=== PATIENT | female | born 1940 | race Caucasian/White ===

== ENCOUNTER → 2016-09-19 | Outpatient (CLI) | payer OTHER, BC ==
[~2016-09-19] MED LIST: B-CO1CAP17 PO; CYAN500T13 PO; IBUP-1459 PO; MULTTAB58 PO; TYLOTC500 PO; VITA400C3 PO; [UNRECOGNIZED DRUG - OTHER] PO; [UNRECOGNIZED DRUG - OTHER] PO; [UNRECOGNIZED DRUG - OTHER] PO; [UNRECOGNIZED DRUG - OTHER] PO
[2016-09-19 18:12] LABS: BASO % 0.2 %; BASO ABS # 0.01 K/uL (0-0.2); COMPLETE YES; EOS % 1.3 %; HEMATOCRIT 38.4 % (37-47); IG% 0.2 %; LYMPH % 37.5 %; LYMPH ABS # 1.95 K/uL (1.2-3.4); MEAN CELL VOLUME 95.8 fL (80-100); MEAN CORPUSCULAR HEMOGLOBIN 30.4 pg (25-34); MEAN CORPUSCULAR HGB CONC 31.8 g/dl (32-36); MEAN PLATELET VOLUME 8.8 fL (7.4-10.4); MONO % 10.4 %; NEUT % 50.4 %; PLATELET COUNT 314 K/uL (130-400); RED BLOOD COUNT 4.01 M/uL (4.2-5.4)
[2016-09-19 18:19] LABS: BLOOD UREA NITROGEN 18 mg/dl (7-18); BUN/CREATININE RATIO 26.8 (10-20); CALCIUM 9.3 mg/dl (8.5-10.1); CARBON DIOXIDE 26 mmol/L (21-32); CHLORIDE 108 mmol/L (98-107); CREATININE 0.66 mg/dl (0.60-1.20); GLUCOSE 84 mg/dl (70-99); POTASSIUM 4.2 mmol/L (3.5-5.1); SODIUM 140 mmol/L (136-145)
[2016-09-19 18:30] LABS: ALB/GLOB RATIO 1.4 (0.9-2); ALKALINE PHOSPHATASE 40 U/L (45-117); ALT/SGPT 22 U/L (12-78); AST/SGOT 19 U/L (15-37); CHOLESTEROL 221 mg/dl (0-200); CHOLESTEROL/HDL RATIO 2.9; HDL CHOLESTEROL 76 mg/dl; THYROID STIMULATING HORMONE 0.714 uIu/ml (0.300-4.500); TRIGLYCERIDES 86 mg/dl (0-150); VERY LOW DENSITY LIPOPROT CALC 17 mg/dl
== END | disposition home or self-care (01) ==
LOC: C.LABSPEC 17:32
PROVIDERS: ATTEND Internal Medicine
DX: R53.83 Other fatigue (principal); E78.5 Hyperlipidemia, unspecified

== ENCOUNTER → 2016-09-23 | Outpatient (CLI) | payer OTHER, BC ==
--- NOTE | 2016-09-23 15:37 | DIAGNOSTIC IMAGING REPORT ---
CHEST 2 VIEWS ROUTINE CLINICAL HISTORY: DYSPNEA COMPARISON STUDY: 10/02/2013 FINDINGS: The cardiac and mediastinal contours are normal. There is no evidence of focal pulmonary consolidation. There is no evidence of failure. No pleural effusions are visualized.[ IMPRESSION: No active disease in the chest. Electronically signed by: Ang Doe M.D. 09/23/2016 3:35 PM Dictated Date/Time: 09/23/2016 3:35 PM
== END | disposition home or self-care (01) ==
LOC: C.RAD 14:31
PROVIDERS: ATTEND Internal Medicine
DX: R06.00 Dyspnea, unspecified (principal)

== ENCOUNTER → 2016-09-27 | Outpatient (CLI) | payer OTHER, BC ==
[~2016-09-27] MED LIST changes: +ATROPINE SULFATE 0.1 MG/ML 5ML SYR ONE; +DOBUTamine HCL 12.5 MG/ML 20 ML VIAL ONE; +METOPROLOL TARTRATE 1 MG/ML VIAL ONE
--- NOTE | 2016-09-27 14:06 | DOBUTAMINE ECHO ---
*NOTICE TO RECEIVING [employer] This information is strictly Confidential and protected under [place] law. [place] law prohibits you from making any further disclosure of this information unless further disclosure is expressly permitted by the written consent of the person to whom it pertains or is authorized by law. A general authorization for the release of medical or other information is not sufficient for this purpose. Hospital accepts no responsibility if the information is made available to any other person, INCLUDING THE PATIENT. Interpretation Summary * Name: THU JOLLEY Study Date: 09/27/2016 11:18 AM BP: 123/68 mmHg * Patient Location: [facility] HR: 72 * : 1940 (M/d/yyyy) Gender: Female Height: 60 in * Age: 75 yrs Ethnicity: [place] Weight: 143 lb * Ordering Physician: Andrew Euceda * Referring Physician: Andrew Euceda * Performed By: Elsa Lyons RCS * * Reason For Study: CHEST PAIN WITH EXERTION / DYSPNEA * BSA: 1.6 m2 * -- Conclusions -- * Left ventricular systolic function is normal. * Grade I diastolic dysfunction, (abnormal relaxation pattern). * The right ventricle is borderline dilated. * Normal dobutamine echocardiogram without evidence of inducible ischemia. Procedure Details * DOBUTAMINE ECHO, CPT#[id number] * ECHO COLOR FLOW, CPT #[id number] * ECHO DOPPLER, CPT #[id number] Left Ventricle * The left ventricle is normal in size. * There is normal left ventricular wall thickness. * Left ventricular systolic function is normal. * Grade I diastolic dysfunction, (abnormal relaxation pattern). * The left ventricular wall motion is normal. Right Ventricle * The right ventricle is borderline dilated. * The right ventricular systolic function is normal. Atria * The left atrial size is normal. * Right atrial size is normal. Mitral Valve * The mitral valve leaflets appear thickened, but open well. * Significant mitral regurgitation is absent. Tricuspid Valve * The tricuspid valve is not well visualized, but is grossly normal. * Significant tricuspid regurgitation is absent. Aortic Valve * The aortic valve is normal in structure and function. * No hemodynamically significant valvular aortic stenosis. * There is no significant aortic regurgitation. Great Vessels * The aortic root is normal size. Pericardium * There is no pericardial effusion. Stress Parameters * Normal baseline electrocardiogram. * Stress ECG: No ST changes. No arrhythmias. * No arrhythmia were noted with stress. * The stress portion of this study was personally supervised by the undersigned interpreting physician. * Rest heart rate was '72' BPM. * Rest blood pressure was '123/68' * Maximum heart rate achieved was 136 bpm. * Maximum heart rate was 93 % of maximum age-predicted heart rate. * Maximum blood pressure was '143/61' * Maximum Dobutamine infusion rate was '30' mcg/kg/min. * A total of 0 mg of intravenous Atropine was used to supplement Dobutamine for heart rate response. * Dobutamine infusion was terminated due to achieving target heart rate * A total of 0 mg of IV Metoprolol was administered to reverse Dobutamine-induced tachycardia. Left Ventricular Findings with Stress * Normal dobutamine echocardiogram without evidence of inducible ischemia. * Normal baseline echocardiogram with normal augmentation during dobutamine infusion. No inducible wall motion abnormalities. Normal baseline EKG without changes during dobutamine infusion. Patient had a headache, but no dyspnea or chest pain during the test. MMode 2D Measurements and Calculations IVSd 0.85 cm IVSs 1.1 cm LVIDd 4.0 cm LVIDs 3.0 cm LVPWd 0.91 cm LVPWs 1.2 cm IVS/LVPW 0.93 FS 24.0 % EDV(Teich) 68.5 ml ESV(Teich) 35.3 ml EF(Teich) 48.5 % EDV(cubed) 62.3 ml ESV(cubed) 27.3 ml EF(cubed) 56.2 % % IVS thick 33.8 % % LVPW thick 27.0 % LV mass(C)d 104.3 grams LV mass(C)dI 64.5 grams/m\S\2 LV mass(C)s 101.4 grams LV mass(C)sI 62.7 grams/m\S\2 SV(Teich) 33.2 ml SI(Teich) 20.5 ml/m\S\2 SV(cubed) 35.0 ml SI(cubed) 21.6 ml/m\S\2 Ao root diam 2.3 cm Ao root area 4.3 cm\S\2 LA dimension 2.9 cm LA/Ao 1.2 LVOT diam 1.8 cm LVOT area 2.5 cm\S\2 LVAd ap4 24.9 cm\S\2 LVLd ap4 6.4 cm EDV(MOD-sp4) 79.4 ml EDV(sp4-el) 82.7 ml LVAs ap4 14.8 cm\S\2 LVLs ap4 5.0 cm ESV(MOD-sp4) 36.0 ml ESV(sp4-el) 36.9 ml EF(MOD-sp4) 54.7 % EF(sp4-el) 55.4 % LVAd ap2 18.2 cm\S\2 LVLd ap2 5.7 cm EDV(MOD-sp2) 48.8 ml EDV(sp2-el) 49.1 ml LVAs ap2 10.5 cm\S\2 LVLs ap2 4.4 cm ESV(MOD-sp2) 20.7 ml ESV(sp2-el) 21.2 ml EF(MOD-sp2) 57.5 % EF(sp2-el) 56.9 % LVLd %diff -11.04 % EDV(MOD-bp) 65.6 ml LVLs %diff -13.39 % ESV(MOD-bp) 28.9 ml EF(MOD-bp) 55.9 % SV(MOD-sp4) 43.5 ml SI(MOD-sp4) 26.9 ml/m\S\2 SV(MOD-sp2) 28.1 ml SI(MOD-sp2) 17.4 ml/m\S\2 SV(MOD-bp) 36.7 ml SI(MOD-bp) 22.7 ml/m\S\2 SV(sp4-el) 45.8 ml SI(sp4-el) 28.3 ml/m\S\2 SV(sp2-el) 27.9 ml SI(sp2-el) 17.3 ml/m\S\2 Doppler Measurements and Calculations MV E max jarred 102.5 cm/sec MV A max jarred 108.4 cm/sec MV E/A 0.95 MV P1/2t max jarred 102.4 cm/sec MV P1/2t 61.1 msec MVA(P1/2t) 3.6 cm\S\2 MV dec slope 491.1 cm/sec\S\2 MV dec time 0.20 sec Ao V2 max 122.8 cm/sec Ao max PG 6.0 mmHg Ao max PG (full) 0.71 mmHg ANNALISA(V,A) 2.4 cm\S\2 ANNALISA(V,D) 2.4 cm\S\2 LV V1 max PG 5.3 mmHg LV V1 max 115.4 cm/sec MR max jarred 471.9 cm/sec MR max PG 89.1 mmHg PA V2 max 75.3 cm/sec PA max PG 2.3 mmHg TR max jarred 215.7 cm/sec
== END | disposition home or self-care (01) ==
LOC: C.CPL 10:04
PROVIDERS: ATTEND Internal Medicine
DX: R07.9 Chest pain, unspecified (principal); R06.09 Other forms of dyspnea

== ENCOUNTER → 2016-10-22 | Outpatient (CLI) | payer OTHER, BC ==
[~2016-10-22] MED LIST changes: -ATROPINE SULFATE 0.1 MG/ML 5ML SYR ONE; -DOBUTamine HCL 12.5 MG/ML 20 ML VIAL ONE; -METOPROLOL TARTRATE 1 MG/ML VIAL ONE
--- NOTE | 2016-10-23 07:57 | MAMMOGRAPHY REPORT ---
BILATERAL DIGITAL SCREENING MAMMOGRAM WITH CAD: 10/22/2016 CLINICAL HISTORY: Routine screening. TECHNIQUE: Bilateral CC, MLO and repeat CC views with nipples in profile were obtained. Current stud y was also evaluated with a Computer Aided Detection (CAD) system. COMPARISON: Comparison is made to exams dated: 08/31/2015 mammogram, 08/29/2014 mammogram, 08/27/2013 m ammogram, 08/26/2012 mammogram, 08/26/2011 mammogram, and 08/22/2010 mammogram - [facility] enter. BREAST COMPOSITION: There are scattered areas of fibroglandular density in both breasts. FINDINGS: There are scattered bilateral benign-appearing calcifications and rodlike secretory calcifi cations. No new suspicious mass, architectural distortion or cluster of microcalcifications is seen. IMPRESSION: ACR BI-RADS CATEGORY 1: NEGATIVE There is no mammographic evidence of malignancy. A 1 year screening mammogram is recommended. The pa tient will receive written notification of the results. Approximately 10% of breast cancers are not detected with mammography. A negative mammographic report should not delay biopsy if a clinically suggestive mass is present. Brigette Landon M.D. ay/:10/22/2016 14:46:21 Summer Babysitter: Jeniffer URIOSTEGUI(R)(M), [facility] letter sent: Normal 1/2 BI-RADS Code: ACR BI-RADS Category 1: Negative
== END | disposition home or self-care (01) ==
LOC: C.MAMM 12:41
PROVIDERS: ATTEND Internal Medicine
DX: Z12.31 Encounter for screening mammogram for malignant neoplasm of breast (principal)

== ENCOUNTER 2025-02-11 14:26 | Inpatient (IN) ==
[2025-02-11] MEDS: FAMOTIDINE 20MG IV PUSH 20 MG/5 ML SYR IV STA (15:01)
[2025-02-11] MEDS: PLASMA-LYTE A 1,000 ML IV ONE (15:01)
[2025-02-11 15:15] LABS: Hematocrit (blood only) 38.6 % (37.0-47.0); Hemoglobin 12.6 g/dL (12.0-16.0); Immature Granulocytes # (auto) 0.02 K/uL (0.01-0.20); Immature Granulocytes % (auto) 0.3 %; Mean Corpuscular Hemoglobin 31.3 pg (25.0-34.0); Mean Corpuscular Volume 95.8 fL (80.0-100.0); Platelet Count 278 K/uL (130-400); RDW Standard Deviation 44.1 fL (36.4-46.3); Red Blood Count 4.03 M/uL (4.20-5.40); White Blood Count 6.54 K/ul (4.8-10.8)
[2025-02-11 15:32] LABS: Alanine Aminotransferase 17 U/L (7-52); Albumin Globulin Ratio 1.5 (0.9-2); Albumin Level 4.3 gm/dl (3.4-5.0); Alkaline Phosphatase 59 U/L (34-104); Anion Gap 9 (3-11); Bilirubin,Total 0.9 mg/dl (0.2-1.0); Blood Urea Nitrogen 19 mg/dl (6-23); Calcium 9.5 mg/dl (8.6-10.3); Carbon Dioxide 25 mmol/L (21-32); Chloride 106 mmol/L (98-107); Globulin 2.8 gm/dl (2.5-4.0); Glucose 92 mg/dl (70-99(Fasting)); Lipase 18 U/L (11-82); Potassium 4.1 mmol/L (3.5-5.1); Sodium 140 mmol/L (136-145); Total Protein 7.1 gm/dl (6.0-8.3)
--- NOTE | 2025-02-11 15:34 | Electrocardiogram Report ---
Test Reason : Blood Pressure : */* mmHG Vent. Rate : 84 BPM Atrial Rate : 84 BPM P-R Int : 122 ms QRS Dur : 74 ms QT Int : 400 ms P-R-T Axes : 36 22 49 degrees QTcB Int : 472 ms Sinus rhythm with marked sinus arrhythmia Low voltage QRS Borderline ECG When compared with ECG of 12-Nov-2022 15:43, No significant change was found Confirmed by Cayetano Paz ([id number]) on 02/11/2025 3:33:53 PM Referred By: Confirmed By: Cayetano Paz
--- NOTE | 2025-02-11 16:06 | Emergency Department Note ---
Impression & Plan Epigastric abdominal pain, Chronic anemia, Positional lightheadedness, Elevated lactic acid level ED Provider Note NAME: THU JOLLEY AGE: 84 SEX: F : 1940 ARRIVES VIA: Ambulance INFORMANT: Patient, EMS ED PROVIDER(S): Fab Worthy DO CHIEF COMPLAINT: HPI: This is an 84-year-old female with the PMHx of DLD and MR presenting to [facility] for further evaluation of lightheadedness/dizziness and abdominal pain. Patient states she lives in a high-rise apartment by herself. She states she has ongoing upper abdominal pain. She states she also has lightheadedness and dizziness. She states this is positional. When she changes in position she becomes lightheaded. She states this affects her ambulatory status. She states she concern for her safety as she nearly falls. They deny fever or chills. No cough or congestion. Denies chest pain or palpitations. No shortness of breath. T No urinary complaints. No recent changes in bowel movements. Patient denies recent changes in medications or OTC supplements. Patient offers no other complaints, today. ADDITIONAL HISTORY OBTAINED: Per HPI Chronic Medical/Social Conditions Affecting Care: Per HPI PAST MEDICAL HISTORY: See Below PAST SURGICAL HISTORY: See Below FAMILY HISTORY: See Below SOCIAL HISTORY: See Below HOME MEDICATIONS: See Below ALLERGIES: See Below VITALS: See Below PHYSICAL EXAMINATION: GENERAL: Sitting up in bed, alert, well appearing, well nourished, no distress, non-toxic EYE EXAM: normal conjunctiva. PERRL and EOM's grossly intact. OROPHARYNX: no exudate, no erythema, lips, buccal mucosa, and tongue normal and mucous membranes are moist NECK: supple, no nuchal rigidity, no adenopathy, non-tender LUNGS: Clear to auscultation. Normal chest wall mechanics HEART: no murmurs, regular rate, regular rhythm ABDOMEN: abdomen soft, epigastric tenderness to palpation, no masses, no rebound or guarding. BACK: Back is symmetrical on inspection and there is no deformity, no midline tenderness, no CVA tenderness. SKIN: no rashes and no bruising UPPER EXTREMITIES: upper extremities are grossly normal. LOWER EXTREMITIES: No pitting edema. NEURO EXAM: Normal sensorium, GCS 15, normal speech, no gross weakness of arms, no gross weakness of legs. No drift. Finger to nose intact. Gross sensation intact. MEDICAL DECISION MAKING: Differential diagnoses includes but not limited to orthostatic hypotension, vasovagal episode, peripheral vertigo, central etiologies, appendicitis, bowel obstruction, diverticulitis, malignancy, nephrolithiasis, gastroenteritis, ACS, PNA, pancreatitis, hepatobiliary disease, UTI, gastritis, esophageal reflux In summary, this is a 84 year old female who presented with lightheadedness/dizziness as well as abdominal pain. Differential as above. Nursing notes and pertinent past medical records reviewed. Vital signs reviewed and the patient is afebrile and HDS. History and presentation revealed multiple complaints today. Patient is not actually here for her abdominal pain necessarily but more that she just has not been feeling well. Her symptoms are consistent with a peripheral etiology of lightheadedness/dizziness. Suspect orthostatic hypotension as with positional changes she has severe lightheadedness. Patient does not have any stroke deficits. Not suspicious for stroke at this time. Physical examination revealed as above. As a result of my initial evaluation, we will plan to workup the patient's abdominal pain while providing supportive measures. There will be a safety concern for the patient given her ongoing symptoms and she lives alone. IV access was established and the patient was placed on CCRM. Therapeutics ordered include IV fluid resuscitation and GI cocktail. Given her severe tenderness on exam and epigastric regions, will obtain further workup with CT abdomen/pelvis. Please note that the patient does take significant robert of ibuprofen. Potential for upper GI bleeding is a possibility but felt to be less likely. Diagnostics interpreted by me include EKG and cardiac monitoring as listed below: -Cardiac Monitoring: An order was placed for continuous cardiac monitoring. The monitor shows a rate of 80-100s with regular rhythm. -ECG: Normal sinus rhythm at a ventricular rate of 84 bpm. Sinus arrhythmia present. No significant ST segment changes to suggest STEMI. Intervals are within normal limits otherwise. Patient completed laboratory studies and imaging. Results independently interpreted by me are no leukocytosis or anemia. There is no significant electrolyte derangements or significant kidney dysfunction from baseline. No changes in LFTs. Lactate is minimally elevated. The patient was managed with IV fluid resuscitation and famotidine. CTH independently interpreted by me reveals no evidence of ICH. No significant hydrocephalus. No major skull fractures. CTH does not demonstrate findings to suggest an etiology of the patient's symptoms or presentation, today. CT abdomen/pelvis is largely unremarkable for explanation of the patient's epigastric pain. Patient symptoms are mostly positional. Do feel the patient likely has peripheral vertigo. She lives by herself in a high-rise apartment. Given patient's ambulatory status, I do not feel she is safe for her to go home at this time. I would recommend that she is admitted. If her symptoms are failed to improve or she develops FND, she will need to have further imaging obtained. I would recommend MRI as there is no suspicion for large vessel occlusion. I do feel the patient has a central etiology which is very less likely, it would likely be a posterior circulation stroke and MRI would be the preferred imaging study. Recommend increased hydration as well as meclizine as needed. Do feel her symptoms should improve from this. Ultimately, the decision was made to admit the patient for peripheral vertigo and positional lightheadedness. I discussed the case with the hospitalist service via telephone/Tiger[employer] and they are agreeable to admit the patient to their services. Based on the above, including the patient's age, coexisting illnesses, labs, imaging, and exam findings the decision to treat as an inpatient. I discussed the patient with the hospitalist team who recommended admission to their services. They received the medications, treatments, interventions indicated above and their condition []. I discussed my findings with the patient and their family and they understand and agree with the treatment plan. All patient / family questions were answered to their satisfaction. Consults/Care Managements Discussions: Per [facility] treatment provided: See above Procedures:none Critical Care: None The chart was completed utilizing [employer] Speech voice recognition software. Grammatical errors, random word insertions, pronoun errors, and incomplete sentences are an occasional consequence of this system due to software limitations, ambient noise, and hardware issues. Any formal questions or concerns about the content, text, or information contained within the body of this dictation should be directly addressed to the physician for clarification. Past Med/Surg History Problem List (Updated 02/13/25 @ 14:13 by Fab Worthy DO) Elevated lactic acid level (Acute) Positional lightheadedness (Acute) Chronic anemia (Acute) Epigastric abdominal pain (Acute) Dizziness Mitral regurgitation mild Dyslipidemia No pertinent past surgical history Cholelithiasis (Acute) Medical History (Updated 02/13/25 @ 14:13 by Fab J. Worthy, DO) No pertinent family history Surgical History (Updated 12/24/22 @ 13:21 by Mary Mcdonnell) History of cataract surgery Hx of cholecystectomy Family History (Updated 12/24/22 @ 10:56 by Mary Mcdonnell) Aunt Breast cancer maternal Sister Breast cancer Family/Other Breast cancer maternal cousins Brother Myocardial infarction Father Lung cancer mets to the lung Other No pertinent family history Denies family history of Ovarian cancer Prostate cancer Colorectal cancer Social History (Updated 12/24/22 @ 13:25 by Mary Mcdonnell) Smoking Status: Never smoker Second Hand Exposure: No; Do You Dip or Chew Tobacco: No; Hx Alcohol Use: No Hx Substance Use: No Preferred Language: Singaporean Communication Ability: Effective Visual Impairment: No Limitations Hearing Ability: Hard of Hearing Web Support Engineer Required: No Beliefs That Will Affect Care: Nondenominational marital status: / Current Living Situation: Alone Current Living Situation Comment: Living in an [place] on the 4th floor current occupational status: retired Other Information That Helps Us Care for You: No Feels Safe at Home: Yes Safety Concerns: Feels Safe At This Time Dental Care, Regularly: No Assistive Devices: Denture - Upper, Denture - Lower and Glasses Allergies Allergies Allergy/AdvReac Type Severity Reaction Status Date / Time Penicillins Allergy Unknown RASH Verified 12/24/22 10:54 Sulfa (Sulfonamide Allergy Unknown SEVERE RED Verified 12/24/22 10:54 Antibiotics) SKIN;ELEVATED TEMP Home Meds Home Medications Medication Instructions Recorded Confirmed acetaminophen 500 mg tablet 500 mg PO QID PRN Pain 08/04/18 02/11/25 (Tylenol Extra Strength) ibuprofen 200 mg tablet 200 mg PO DIRECTED PRN Pain 08/04/18 02/11/25 Results & Data (ED) Vital Signs Vital Signs - 24 hr 02/11/25 14:15 02/11/25 14:39 02/11/25 14:40 Pulse Rate 93 H 81 93 H Pulse Rate from SpO2 Sensor Respiratory Rate 16 28 H 16 Respiratory Depth Normal Blood Pressure 150/82 H Blood Pressure Mean 104 Pulse Oximetry 96 96 Oxygen Delivery Method Room Air Sepsis Recent Fever Within 48 Hours No Sepsis New/Unexplained Change in Mental Status N/A Sepsis Action Taken by Nursing No Action Required 02/11/25 14:42 02/11/25 14:51 02/11/25 15:00 Pulse Rate 86 84 92 H Pulse Rate from SpO2 Sensor Respiratory Rate 23 23 19 Respiratory Depth Blood Pressure Blood Pressure Mean Pulse Oximetry Oxygen Delivery Method Sepsis Recent Fever Within 48 Hours Sepsis New/Unexplained Change in Mental Status Sepsis Action Taken by Nursing 02/11/25 15:12 02/11/25 15:21 02/11/25 15:30 Pulse Rate 91 H 103 H 95 H Pulse Rate from SpO2 Sensor 90 99 H 97 H Respiratory Rate 22 23 25 H Respiratory Depth Blood Pressure Blood Pressure Mean Pulse Oximetry 97 100 98 Oxygen Delivery Method Sepsis Recent Fever Within 48 Hours Sepsis New/Unexplained Change in Mental Status Sepsis Action Taken by Nursing 02/11/25 15:42 02/11/25 15:51 02/11/25 16:18 Pulse Rate 91 H 86 102 H Pulse Rate from SpO2 Sensor 89 85 91 H Respiratory Rate 15 17 20 Respiratory Depth Blood Pressure 154/74 H Blood Pressure Mean 100 Pulse Oximetry 98 99 99 Oxygen Delivery Method Sepsis Recent Fever Within 48 Hours Sepsis New/Unexplained Change in Mental Status Sepsis Action Taken by Nursing 02/11/25 16:21 02/11/25 16:30 02/11/25 16:42 Pulse Rate 88 82 83 Pulse Rate from SpO2 Sensor 89 86 87 Respiratory Rate 18 15 21 Respiratory Depth Blood Pressure Blood Pressure Mean Pulse Oximetry 100 99 99 Oxygen Delivery Method Sepsis Recent Fever Within 48 Hours Sepsis New/Unexplained Change in Mental Status Sepsis Action Taken by Nursing 02/11/25 16:46 02/11/25 16:51 02/11/25 17:00 Pulse Rate 90 83 89 Pulse Rate from SpO2 Sensor 82 89 Respiratory Rate 22 24 Respiratory Depth Blood Pressure Blood Pressure Mean Pulse Oximetry 99 99 Oxygen Delivery Method Sepsis Recent Fever Within 48 Hours Sepsis New/Unexplained Change in Mental Status Sepsis Action Taken by Nursing 02/11/25 17:12 02/11/25 17:21 02/11/25 17:30 Pulse Rate 87 78 89 Pulse Rate from SpO2 Sensor 84 80 85 Respiratory Rate 15 19 15 Respiratory Depth Blood Pressure Blood Pressure Mean Pulse Oximetry 98 99 97 Oxygen Delivery Method Sepsis Recent Fever Within 48 Hours Sepsis New/Unexplained Change in Mental Status Sepsis Action Taken by Nursing 02/11/25 17:42 Pulse Rate 89 Pulse Rate from SpO2 Sensor 86 Respiratory Rate 13 Respiratory Depth Blood Pressure 127/90 Blood Pressure Mean 102 Pulse Oximetry 99 Oxygen Delivery Method Sepsis Recent Fever Within 48 Hours Sepsis New/Unexplained Change in Mental Status Sepsis Action Taken by Nursing Laboratory Data 02/13/25 06:22 02/13/25 06:22 Lab Results 02/11/25 02/11/25 Range/Units 15:04 15:46 WBC 6.54 (4.8-10.8) K/ul RBC 4.03 L (4.20-5.40) M/uL Hgb 12.6 (12.0-16.0) g/dL Hct 38.6 (37.0-47.0) % MCV 95.8 (80.0-100.0) fL MCH 31.3 (25.0-34.0) pg MCHC 32.6 (32.0-36.0) g/dL RDW Std Deviation 44.1 (36.4-46.3) fL RDW Coeff of Priyanka 12.6 (11.5-14.5) % Plt Count 278 (130-400) K/uL MPV 8.3 L (9.4-12.4) fL Immature Gran % (Auto) 0.3 % Neut % (Auto) 71.9 % Lymph % (Auto) 20.2 % Rock % (Auto) 7.0 % Eos % (Auto) 0.3 % Baso % (Auto) 0.3 % Neut # (Auto) 4.70 (1.40-6.50) K/uL Lymph # (Auto) 1.32 (1.20-3.40) K/uL Rock # (Auto) 0.46 (0.11-0.59) K/uL Eos # (Auto) 0.02 (0.00-0.50) K/uL Baso # (Auto) 0.02 (0.00-0.20) K/uL Immature Gran # (Auto) 0.02 (0.01-0.20) K/uL Sodium 140 (136-145) mmol/L Potassium 4.1 (3.5-5.1) mmol/L Chloride 106 (98-107) mmol/L Carbon Dioxide 25 (21-32) mmol/L Anion Gap 9 (3-11) BUN 19 (6-23) mg/dl Creatinine 0.54 L (0.6-1.2) mg/dl Est Cr Clr Drug Dosing Not Reportable eGFR 90.73 BUN/Creatinine Ratio 35.2 H (10-20) Glucose 92 (70-99(Fasting)) mg/dl Lactate 2.1 H* (0.4-2.0) mmol/L Calcium 9.5 (8.6-10.3) mg/dl Total Bilirubin 0.9 (0.2-1.0) mg/dl AST 27 (13-39) U/L ALT 17 (7-52) U/L Alkaline Phosphatase 59 (34-104) U/L Troponin I High Sens 7.7 (0-14) pg/ml Total Protein 7.1 (6.0-8.3) gm/dl Albumin 4.3 (3.4-5.0) gm/dl Globulin 2.8 (2.5-4.0) gm/dl Albumin/Globulin Ratio 1.5 (0.9-2) Lipase 18 (11-82) U/L Administered Medications Acetaminophen (Acetaminophen 500 Mg Tab) 1,000 mg PO Q8H PRN PRN Reason: pain/arthritis Stop: 03/15/25 08:20 Last Admin: 02/13/25 08:30 Dose: 1,000 mg Documented By: JACQUE Enoxaparin Sodium (Enoxaparin Inj 40 Mg/0.4 Ml Syr) 40 mg SQ Q24H JENAE Stop: 03/14/25 08:59 Last Admin: 02/13/25 08:30 Dose: 40 mg Documented By: Admin: 02/12/25 08:14 Dose: 40 mg Documented By: aviva Discontinued Medications Acetaminophen (Acetaminophen 325 Mg Tab) 650 mg PO Q4H PRN PRN Reason: pain/fever Stop: 03/13/25 21:54 Last Admin: 02/12/25 19:44 Dose: 650 mg Documented By: devon Admin: 02/12/25 16:27 Dose: 650 mg Documented By: aviva Admin: 02/12/25 08:13 Dose: 650 mg Documented By: aviva Admin: 02/11/25 23:06 Dose: 650 mg Documented By: devon Famotidine (Pepcid 20mg Iv Push) 20 mg in 5 mls @ 2.5 mls/min IV NOW STA Stop: 02/11/25 14:37 Last Admin: 02/11/25 15:01 Dose: 2.5 mls/min Documented By: AGUSTO Parenteral Electrolytes (Plasma-Lyte A Ph 7.4) 1,000 mls @ 999 mls/hr IV .Q1H1M ONE Stop: 02/11/25 15:36 Last Infusion: 02/11/25 16:19 Dose: Infused Documented By: Admin: 02/11/25 15:01 Dose: 999 mls/hr Documented By: AGUSTO Parenteral Electrolytes (Plasma-Lyte A Ph 7.4) 1,000 mls @ 125 mls/hr IV .Q8H JENAE Stop: 02/12/25 01:29 Last Infusion: 02/12/25 01:46 Dose: Infused Documented By: psc Admin: 02/11/25 17:38 Dose: 125 mls/hr Documented By: AGUSTO Ioversol (Optiray 320 100ml) 90 ml IV ONCE ONE Stop: 02/11/25 16:07 Last Admin: 02/11/25 16:07 Dose: 90 ml Documented By: RYDER Meclizine HCl (Meclizine Hcl 25 Mg Tab) 25 mg PO NOW STA Stop: 02/11/25 17:27 Last Admin: 02/11/25 17:36 Dose: 25 mg Documented By: AGUSTO Miscellaneous (Patient's Height &/Or Weight Needed) 1 each N/A Q2H STA Stop: 02/11/25 22:01 Last Admin: 02/11/25 23:07 Dose: 1 each Documented By: devon Potassium Chloride (Potassium Chloride Crtab 20 Meq Tabcr) 40 meq PO NOW STA Stop: 02/12/25 11:23 Last Admin: 02/12/25 11:47 Dose: 40 meq Documented By: aviva Imaging Data Radiologist's Impression: Abdomen/Pelvis CT 02/11/25 14:36 Clinical History: Epigastric pain Technique: Axial computed tomography images were obtained of the abdomen and pelvis after the administration of intravenous contrast. No prior CT is available for comparison. Findings: The liver is overall of normal size, attenuation, and contour with no sign of cirrhosis or significant fatty infiltration. No liver mass lesion is seen. The portal vein is patent. The gallbladder has been removed. No bile duct dilatation is noted. The spleen is of normal size. No focal splenic lesion is evident. The pancreas appears normal with no sign of acute or chronic pancreatitis and no mass lesion noted. The pancreatic duct is of normal caliber. The adrenal glands appear unremarkable. No definite renal or proximal ureteral calculi are seen on this contrast-enhanced study. There is mild prominence of the right renal collecting system. There is no overt hydronephrosis or perinephric stranding. No renal mass lesion is identified. The aorta is of normal caliber. No abdominal adenopathy is seen. The stomach appears normal. There is no sign of small bowel obstruction. There is diverticulosis without definite diverticulitis. There is no sign of appendicitis. No free intraperitoneal fluid or air is identified. No definite distal ureteral or bladder calculi are seen. Calcifications within the pelvis likely represent phleboliths. No bladder mass lesion is evident. The iliac arteries are of normal caliber. No pelvic adenopathy is noted. The lungs bases appear clear. There is spinal stenosis at L4-5. No fracture is identified. No focal osseous lesion is seen Impression: 1. Mild dilatation of the right renal collecting system, without overt hydronephrosis or definite obstructing lesion. This dilatation could be residual from prior obstruction or reflux 2. Diverticulosis without definite diverticulitis 3. Spinal stenosis at L4-5 Electronically signed by Robby Atkinson 02-11-2025 4:[address] 02/11/25 14:36 Clinical History: Lightheadedness Technique: Axial computed tomography images were obtained of the brain without intravenous contrast. Findings: There is diffuse cerebral atrophy, within expected limits for the patient's age. Areas of decreased attenuation are seen within the periventricular white matter, likely representing chronic small vessel ischemic disease. There is no definite sign of acute or old infarction. No intracranial hemorrhage is evident. No definite mass lesion is seen on this noncontrast examination. There is no midline shift or other form of herniation. No hydrocephalus is seen. There is apparent fat deposition in the anterior horns of the lateral ventricles laterally. No fracture is identified. The orbits and the visualized paranasal sinuses appear unremarkable. There is partial opacification of the right mastoid air cells Impression: 1. Cerebral atrophy and chronic small vessel ischemic disease 2. Partial opacification of the right mastoid air cells, which may be due to inflammatory mastoiditis Electronically signed by Robby Atkinson 02-11-2025 4:26 PM Discharge Plan Visit Data Chief Complaint: Illness Stated Complaint: doesn't feel well ED Provider: Fab Worthy Discharge Problem: Epigastric abdominal pain, Chronic anemia, Positional lightheadedness, Elevated lactic acid level Patient Disposition: Admitted As Inpatient Condition: Fair Discharge Instructions Interventions: ED Discharge Assessment Last Done: 02/11/25 21:32
[2025-02-11] MEDS: OPTIRAY 320 100ml IV ONE (16:07)
--- NOTE | 2025-02-11 16:27 | CT Scan Report ---
Clinical History: Lightheadedness Technique: Axial computed tomography images were obtained of the brain without intravenous contrast. Findings: There is diffuse cerebral atrophy, within expected limits for the patient's age. Areas of decreased attenuation are seen within the periventricular white matter, likely representing chronic small vessel ischemic disease. There is no definite sign of acute or old infarction. No intracranial hemorrhage is evident. No definite mass lesion is seen on this noncontrast examination. There is no midline shift or other form of herniation. No hydrocephalus is seen. There is apparent fat deposition in the anterior horns of the lateral ventricles laterally. No fracture is identified. The orbits and the visualized paranasal sinuses appear unremarkable. There is partial opacification of the right mastoid air cells Impression: 1. Cerebral atrophy and chronic small vessel ischemic disease 2. Partial opacification of the right mastoid air cells, which may be due to inflammatory mastoiditis Electronically signed by Robby Atkinson 02-11-2025 4:26 PM
--- NOTE | 2025-02-11 16:32 | CT Scan Report ---
Clinical History: Epigastric pain Technique: Axial computed tomography images were obtained of the abdomen and pelvis after the administration of intravenous contrast. No prior CT is available for comparison. Findings: The liver is overall of normal size, attenuation, and contour with no sign of cirrhosis or significant fatty infiltration. No liver mass lesion is seen. The portal vein is patent. The gallbladder has been removed. No bile duct dilatation is noted. The spleen is of normal size. No focal splenic lesion is evident. The pancreas appears normal with no sign of acute or chronic pancreatitis and no mass lesion noted. The pancreatic duct is of normal caliber. The adrenal glands appear unremarkable. No definite renal or proximal ureteral calculi are seen on this contrast-enhanced study. There is mild prominence of the right renal collecting system. There is no overt hydronephrosis or perinephric stranding. No renal mass lesion is identified. The aorta is of normal caliber. No abdominal adenopathy is seen. The stomach appears normal. There is no sign of small bowel obstruction. There is diverticulosis without definite diverticulitis. There is no sign of appendicitis. No free intraperitoneal fluid or air is identified. No definite distal ureteral or bladder calculi are seen. Calcifications within the pelvis likely represent phleboliths. No bladder mass lesion is evident. The iliac arteries are of normal caliber. No pelvic adenopathy is noted. The lungs bases appear clear. There is spinal stenosis at L4-5. No fracture is identified. No focal osseous lesion is seen Impression: 1. Mild dilatation of the right renal collecting system, without overt hydronephrosis or definite obstructing lesion. This dilatation could be residual from prior obstruction or reflux 2. Diverticulosis without definite diverticulitis 3. Spinal stenosis at L4-5 Electronically signed by Robby Atkinson 02-11-2025 4:31 PM
[2025-02-11 16:45] LABS: Appearance Urine Clear (Clear); Bacteria Urine Automated None Seen (None Seen); Cast Urine Automated 0-2 /lpf (0-2); Epithelial Cell Urine Auto 0-2 /hpf (0-2); Glucose Urine UA Negative (Negative); RBC Urine Automated 0-2 /hpf (0-2); WBC Urine Automated 0-5 /hpf (0-5)
[2025-02-11] MEDS: MECLIZINE HCL 25 MG TAB PO STA (17:36)
[2025-02-11] MEDS: PLASMA-LYTE A 1,000 ML IV SCH (17:38)
--- NOTE | 2025-02-11 18:03 | History & Physical Report ---
Date of Service February 11, 2025 Assessment & Plan (1) Dizziness: Plan Dizziness, suspect orthostasis and prerenal. Symptoms are predominantly when standing with lightheadedness but no room spinning/vertiginous quality. These have been intermittent over the last couple of months and she endorses some chronic progressive weakness. She also endorses generally poor liquid/water intake Differential includes peripheral vertigo, although suspect volume contraction orthostasis are most likely BUN/creatinine ratio is elevated lactate 2.1 and with orthostatic symptoms all suggestive of volume contraction, she does not have a kidney injury. Room spinning/dizziness potentially with vertiginous cause. She has had this intermittently in the past and has felt poorly in the last few days Will continue 1 bag of Plasma-Lyte, then encourage regular diet as tolerated Orthostatics No evidence of cardiac ischemia Lower suspicion for vertigo, did receive meclizine in the ER. PT/OT. Can perform Egeland-Hallpike at that time as History of palpitations, chest heaviness, fatigue Seen in 2021 for this. Suspected to be related to anxiety. Did not show EKG changes at that time or evidence of ischemia. TSH was normal at that time. Abdominal discomfort CTA/P shows mild dilation of the right renal collecting system without hydronephrosis or evidence of obstructing lesion. Diverticulosis without diverticulitis seen. Spinal stenosis at L4-L5 Afebrile, no leukocytosis Improved Trend Mitral regurgitation Troponin is not elevated, no chest pain. EKG on admission sinus, QTc 472. No territorial ST/T wave changes. Similar to prior. Anxiety/depression Patient had declined medical therapy in the past. DVT prophylaxis: Lovenox Disposition: MSO CODE STATUS: Diet: Regular History of Present Illness Primary Care Provider: Peggy Villarreal MD Wendy Reece is an 84-year-old female with multiple episodes in the past of dizziness who presents for feeling poorly over the last few days, mild abdominal tenderness, and dizziness/room spinning when standing and with positional head movements. She underwent a CTA/P without acute finding. Lacta te was minimally elevated to 2.1, no other acute metabolic derangements were noted in the ER. CThead was normal. Patient was attempted to be ambulated by the ER prior to admission consultation, noted concern for hypotensive response and severe dizziness with inability to ambulate safely. She was recommended for further workup, PT/OT, and care with medicine team. Nano is seen at the bedside. She reports that for many years she has had longstanding issues with some lightheadedness when standing and some progressive weakness over the last few months when trying to walk. She denies any focal extremity weakness or sensory change. Symptoms today were with lightheadedness and much worse when trying to get up and stand out of bed. She has no symptoms when standing at the past. She denies any room spinning quality either today or in the past/denies vertigo. She has not had chest pain or chest pressure at any point. Denies shortness of breath. Abdominal pain has improved, she did have some coming and today however this feels better. She denies fever chills and sweats. Does not completely lost consciousness at any point. She did have a fall a week or 2 ago where she felt very weak overall. She denies recent illness or flulike symptoms. 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 She denies dysuria and polyuria. She does report that she really does not drink very much water at all and knows she is probably dehydrated. Reports some leg swelling if she is on her feet for prolonged period however this improves with putting her feet up and does not have swelling in her legs if she elevates her feet. She denies shortness of breath and orthopnea Medical History: Reviewed Medications: Reviewed Surgical History: Reviewed Family history: Reviewed Allergies: Reviewed Social History: Reviewed Code Status: Full. Discussed at bedside. She reports she is not really sure which she would want done long-term, did discuss the nature of resuscitation, lagos ccess rates, and what the range of success would look like versus DNR/DNI options. She reports she feels a little bit overwhelmed and would like to think about this more but remain full code on admission. Allergies Allergy/AdvReac Type Severity Reaction Status Date / Time Penicillins Allergy Unknown RASH Verified 12/24/22 10:54 Sulfa (Sulfonamide Allergy Unknown SEVERE RED Verified 12/24/22 10:54 Antibiotics) SKIN;ELEVATED TEMP Home Medications Medication Instructions Recorded Confirmed Type acetaminophen 500 mg tablet 500 mg PO QID PRN Pain 08/04/18 02/11/25 History (Tylenol Extra Strength) ibuprofen 200 mg tablet 200 mg PO DIRECTED PRN Pain 08/04/18 02/11/25 History Past Med/Surg History Problem List (Updated 02/11/25 @ 19:02 by Wilder Fitzgerald MD) Dizziness Mitral regurgitation mild Dyslipidemia No pertinent past surgical history Cholelithiasis (Acute) Medical History (Updated 02/11/25 @ 19:02 by Wilder Fitzgerald MD) No pertinent family history Surgical History (Updated 12/24/22 @ 13:21 by Mary Mcdonnell) History of cataract surgery Hx of cholecystectomy Family History (Updated 12/24/22 @ 10:56 by Mary Mcdonnell) Aunt Breast cancer maternal Sister Breast cancer Family/Other Breast cancer maternal cousins Brother Myocardial infarction Father Lung cancer mets to the lung Other No pertinent family history Denies family history of Ovarian cancer Prostate cancer Colorectal cancer Social History (Updated 12/24/22 @ 13:25 by Mary Mcdonnell) Smoking Status: Former smoker Second Hand Exposure: No; Do You Dip or Chew Tobacco: No; Hx Alcohol Use: No Hx Substance Use: No Preferred Language: Jordanian Communication Ability: Effective Visual Impairment: No Limitations Hearing Ability: Hard of Hearing marital status: / Current Living Situation: Alone current occupational status: retired Feels Safe at Home: Yes Dental Care, Regularly: No Assistive Devices: Glasses Physical Exam Physical Exam: General: A&Ox3. NAD. Cooperative. HEENT: Atraumatic, normocephalic. Vision/hearing intact Pulm: CTAB A&P. -wheezes, -rales, -rhonchi. Symmetrical chest rise. No increased work of breathing. No respiratory distress. Cardiac: RRR, +sm. Radial pulses intact and symmetrical. Abdominal: Nontender, nondistended, soft. BS present. Extremities: No pedal edema. Slight left calf ichthyosis. She reports she gets leg swelling if she is on her feet for a long time, but no swelling when her feet are up. Results & Data Results & Data Vital Signs (Past 12 Hours) Vital Signs Pulse Resp BP Pulse Ox O2 Del Method 02/11/25 17:42 89 13 127/90 99 02/11/25 17:30 89 15 97 02/11/25 17:21 78 19 99 02/11/25 17:12 87 15 98 02/11/25 17:00 89 24 99 02/11/25 16:51 83 22 99 02/11/25 16:46 90 02/11/25 16:42 83 21 99 02/11/25 16:30 82 15 99 02/11/25 16:21 88 18 100 02/11/25 16:18 102 H 20 99 02/11/25 15:51 86 17 154/74 H 99 02/11/25 15:42 91 H 15 98 02/11/25 15:30 95 H 25 H 98 02/11/25 15:21 103 H 23 100 02/11/25 15:12 91 H 22 97 02/11/25 15:00 92 H 19 02/11/25 14:51 84 23 02/11/25 14:42 86 23 02/11/25 14:40 93 H 16 96 02/11/25 14:39 81 28 H 02/11/25 14:15 93 H 16 150/82 H 96 Room Air PG Care Time/CCT Total # of Minutes Spent Total Time Spent with Patient: Total time spent is greater than 50% in coordination of care (as documented) at patient's floor/unit and/or counseling patient: Coding Level of Care Code 06118 INT INP/OBS CARE 3/75MIN Diagnoses Dizziness R42
[2025-02-11] MEDS ORDERED: ONDANSETRON INJ 2 MG/ML 2 ML VIAL IV PRN (21:55)
[2025-02-11] MEDS: ACETAMINOPHEN 325 MG TAB PO PRN (23:06)
[2025-02-11] MEDS: Patient's HEIGHT &/or WEIGHT Needed STA (23:07)
[2025-02-12 06:55] LABS: Hematocrit (blood only) 32.5 % (37.0-47.0); Hemoglobin 10.9 g/dL (12.0-16.0); Immature Granulocytes # (auto) 0.01 K/uL (0.01-0.20); Immature Granulocytes % (auto) 0.2 %; Mean Corpuscular Hemoglobin 32.0 pg (25.0-34.0); Mean Corpuscular Volume 95.3 fL (80.0-100.0); Platelet Count 252 K/uL (130-400); RDW Standard Deviation 44.2 fL (36.4-46.3); Red Blood Count 3.41 M/uL (4.20-5.40); White Blood Count 5.40 K/ul (4.8-10.8)
[2025-02-12 07:37] LABS: Anion Gap 9.0 (3-11); Blood Urea Nitrogen 14.0 mg/dl (6-23); Calcium 8.3 mg/dl (8.6-10.3); Carbon Dioxide 24.0 mmol/L (21-32); Chloride 108.0 mmol/L (98-107); Creatinine Clr Calc Pharmacy 64.9 ml/min; Glucose 83.0 mg/dl (70-99(Fasting)); Magnesium 2.2 mg/dl (1.7-2.4); Potassium 3.2 mmol/L (3.5-5.1); Sodium 141.0 mmol/L (136-145)
--- NOTE | 2025-02-12 07:48 | Hospitalist Progress Note ---
Date of Service February 12, 2025 Assessment & Plan (1) Dizziness: Plan 84-year-old female who presents for weakness and dizziness. She describes a longstanding history of some dizziness, notes that this is more of a weakness in her legs which is mostly associated with standing but recently was occurred with some additional lightheadedness to presentation. She denies spinning/vertigo vertiginous quality to her symptoms at any point. Suspect multifactorial with both deconditioning, orthostasis, and volume contraction on admitting assessment. Dizziness, suspect orthostasis and prerenal. Symptoms are predominantly when standing with lightheadedness but no room spinning/vertiginous quality. These have been intermittent over the last couple of months and she endorses some chronic progressive weakness. She also endorses generally poor liquid/water intake Differential includes peripheral vertigo, although suspect volume contraction + orthostasis are most likely BUN/creatinine ratio is elevated lactate 2.1 and with orthostatic symptoms all suggestive of volume contraction, she does not have a kidney injury. No room spinning/dizziness consistent with vertiginous cause. She has had lightheadedness intermittently in the past and has felt poorly in the last few days, but denies spinning quality Potassium 3.2, repleted Orthostatics pending Anticipate will need placement. PT/OT Boost 3 times daily History of palpitations, chest heaviness, fatigue Seen in 2021 for this. Suspected to be related to anxiety. Did not show EKG changes at that time or evidence of ischemia. TSH was normal at that time. Abdominal discomfort CTA/P shows mild dilation of the right renal collecting system without hydronephrosis or evidence of obstructing lesion. Diverticulosis without diverticulitis seen. Spinal stenosis at L4-L5 Afebrile, no leukocytosis Improved Trend LFTs remain normal Mitral regurgitation Troponin is not elevated, no chest pain. EKG on admission sinus, QTc 472. No territorial ST/T wave changes. Similar to prior. Anxiety/depression Noted, has declined pharmacologic treatment for this DVT prophylaxis: Lovenox Disposition: MSO CODE STATUS: Full code Diet: Regular Admission and Anticipated Discharge Date Admission Date: February 11, 2025 Subjective Seen at bedside this morning. She reports she had a poor night sleep due to having a noisy roommate who was up until around 2:00 otherwise felt okay. She does feel a little better today after IV fluids. Has not yet been up out of bed. Denies chest pain chest pressure or shortness of breath. She does still feel overall weak. She reports she would like to return home but acknowledges she will probably need strength training and some rehab. Afebrile. No other acute concerns at that Physical Exam Physical Exam: General: A&Ox3. NAD. Cooperative. HEENT: Atraumatic, normocephalic. Vision/hearing intact Pulm: CTAB A&P. -wheezes, -rales, -rhonchi. Symmetrical chest rise. No increased work of breathing. No respiratory distress. Cardiac: RRR, +sm. Radial pulses intact and symmetrical. Abdominal: Nontender, nondistended, soft. BS present. Extremities: No pedal edema. Slight left calf mild ichthyosis. No erythema Results & Data Results & Data Vital Signs (Past 12 Hours) Vital Signs Temp Pulse Pulse Resp BP BP BP 02/12/25 07:04 36.8 C 77 18 109/62 02/11/25 22:24 02/11/25 22:24 37 C 78 18 124/69 02/11/25 21:32 77 17 110/63 02/11/25 21:00 78 16 119/67 02/11/25 20:38 89 Pulse Ox O2 Del Method 02/12/25 07:04 96 Room Air 02/11/25 22:24 Room Air 02/11/25 22:24 99 Room Air 02/11/25 21:32 97 Room Air 02/11/25 21:00 98 Room Air 02/11/25 20:38 PG Care Time/CCT Total # of Minutes Spent Total Time Spent with Patient: Total time spent is greater than 50% in coordination of care (as documented) at patient's floor/unit and/or counseling patient: Coding Level of Care Code 13023 SUB INP/OBS CARE 3/50MIN Diagnoses Dizziness R42
[2025-02-12] MEDS: ENOXAPARIN INJ 40 MG/0.4 ML SYR SQ SCH (08:14)
[2025-02-12] MEDS: POTASSIUM CHLORIDE CRTAB 20 MEQ TABCR PO STA (11:47)
[2025-02-12] MEDS ORDERED: DICLOFENAC SOD 1% GEL 100 GM TUBE EXT PRN (18:28)
[2025-02-13 06:48] LABS: Hematocrit (blood only) 35.5 % (37.0-47.0); Hemoglobin 11.7 g/dL (12.0-16.0); Immature Granulocytes # (auto) 0.01 K/uL (0.01-0.20); Immature Granulocytes % (auto) 0.2 %; Mean Corpuscular Hemoglobin 31.8 pg (25.0-34.0); Mean Corpuscular Volume 96.5 fL (80.0-100.0); Platelet Count 243 K/uL (130-400); RDW Standard Deviation 45.1 fL (36.4-46.3); Red Blood Count 3.68 M/uL (4.20-5.40); White Blood Count 5.67 K/ul (4.8-10.8)
[2025-02-13 07:28] LABS: Anion Gap 7.0 (3-11); Blood Urea Nitrogen 21.0 mg/dl (6-23); Calcium 8.6 mg/dl (8.6-10.3); Carbon Dioxide 24.0 mmol/L (21-32); Chloride 110.0 mmol/L (98-107); Creatinine Clr Calc Pharmacy 76.7 ml/min; Glucose 85.0 mg/dl (70-99(Fasting)); Potassium 3.5 mmol/L (3.5-5.1); Sodium 141.0 mmol/L (136-145)
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
[2025-02-13] MEDS: ACETAMINOPHEN 500 MG TAB PO PRN (08:30)
[2025-02-14 06:46] LABS: Hematocrit (blood only) 33.5 % (37.0-47.0); Hemoglobin 11.4 g/dL (12.0-16.0); Immature Granulocytes # (auto) 0.01 K/uL (0.01-0.20); Immature Granulocytes % (auto) 0.2 %; Mean Corpuscular Hemoglobin 32.5 pg (25.0-34.0); Mean Corpuscular Volume 95.4 fL (80.0-100.0); Platelet Count 246 K/uL (130-400); RDW Standard Deviation 43.8 fL (36.4-46.3); Red Blood Count 3.51 M/uL (4.20-5.40); White Blood Count 5.64 K/ul (4.8-10.8)
[2025-02-14 07:03] LABS: Anion Gap 8.0 (3-11); Blood Urea Nitrogen 22.0 mg/dl (6-23); Calcium 8.6 mg/dl (8.6-10.3); Carbon Dioxide 25.0 mmol/L (21-32); Chloride 108.0 mmol/L (98-107); Creatinine Clr Calc Pharmacy 76.7 ml/min; Glucose 91.0 mg/dl (70-99(Fasting)); Potassium 3.4 mmol/L (3.5-5.1); Sodium 141.0 mmol/L (136-145)
[2025-02-14] MEDS: POTASSIUM CHLORIDE CRTAB 20 MEQ TABCR PO ONE (11:03)
[2025-02-14] MEDS: MIDODRINE HCL 2.5 MG TAB PO SCH (14:13)
--- NOTE | 2025-02-14 17:24 | Hospitalist Progress Note ---
Date of Service February 14, 2025 Assessment & Plan (1) Dizziness: Plan: Suspected orthostatic hypotension. Midodrine ordered but the patient has been refusing to take it. I am not sure I can offer her anything else while she is here. She needs to keep herself well-hydrated. (2) Epigastric abdominal pain: Plan: Resolved. CT scan of the abdomen and pelvis reveals diverticulosis but no significant acute pathology. Will follow (3) Hypokalemia: Plan: Oral replacement ordered. Serial labs Plan Hopefully she will agree to take the midodrine which should help her symptomatically. She has been refusing to take it. She also refuses to go to rehab as recommended by physical therapy. I do not think I can offer her anything else during her acute hospital stay. She has agreed to home health services. Anticipate discharge to home tomorrow, February 15 Admission and Anticipated Discharge Date Admission Date: February 14, 2025 Subjective Alert and oriented. No distress. Her symptoms are consistent with orthostatic hypotension. Midodrine has been ordered but the patient is refusing to take it. Physical therapy has recommended rehab transiently but she is also refusing to go to rehab. I am not sure there is anything I can do for her since she is refusing treatment. Potassium is slightly low at 3.4 and oral potassium has been ordered. She did agree to do home health services. Hopefully she can go home tomorrow, February 15 Review of Systems 2 Review of Systems: Constitutionalno fever or chills ENTno blurred vision, no double vision, no epistaxis, no sore throat Respiratoryno cough, no wheezing, no shortness of breath Cardiacno palpitations, no chest pain, no syncope Inder nausea, vomiting, diarrhea, melena, hematochezia GUno urinary retention, no urinary incontinence, no dysuria, no hematuria Musculoskeletalno joint pain, no muscle tenderness Skinno bruising, no rashes, no pruritus Neurono isolated weakness, no paresthesia, no weakness Psychno depression, no anxiety Physical Exam 2 Physical Exam: General-alert and oriented x3, no fever, no chills HEENT-head atraumatic and normocephalic, pupils equal and reactive to light, extraocular muscles intact Neck-no lymphadenopathy or thyromegaly, trachea midline Chest-clear to auscultation. No rales, wheezing or rhonchi Cardiac-regular rate and rhythm, normal S1 and S2 Abdomen-normal bowel sounds, no hepatosplenomegaly Extremities-no cyanosis, clubbing, or edema Neuro-cranial nerves II through XII intact, motor and sensory function within normal limits, strength symmetrical, no focal deficits Psych-normal affect, normal mood Results & Data Results & Data Vital Signs (Past 12 Hours) Vital Signs Temp Pulse Resp BP Pulse Ox O2 Del Method 02/14/25 17:00 87 133/84 96 Room Air 02/14/25 15:23 36.7 C 92 H 16 106/66 96 Room Air 02/14/25 07:14 36.6 C 75 16 114/69 97 Room Air Laboratory Results 02/14/25 06:25 02/14/25 06:25 PG Care Time/CCT Total # of Minutes Spent Total Time Spent with Patient: Total time spent is greater than 50% in coordination of care (as documented) at patient's floor/unit and/or counseling patient: Coding Level of Care Code 89087 SUB INP/OBS CARE 3/50MIN Diagnoses Dizziness R42 Epigastric abdominal pain R10.13 Hypokalemia E87.6
[2025-02-15 07:14] VITALS: BP 114/71; PULSE 77; RESP 16; TEMP 98.2; O2SAT 96
--- NOTE | 2025-02-15 10:58 | Discharge Summary ---
Discharge Summary Date of Service February 15, 2025 Principal Dx & Hospital Course #1 = Principal Diagnosis (1) Dizziness: (2) Epigastric abdominal pain: (3) Hypokalemia: Plan This is an 84 year old female with no significant past medical history who presented to the ED on 02/11/2025 for dizziness. Patient self reports a hx of Vertigo at home & felt dizzy upon sitting up the day of arrival to the ED. #Dizziness w ongoing hx of vertigo & weakness. Head CT negative; UA negative. Lactate mildly elevated on admission at 2.1, s/p IV fluids Orthostatic VS were positive on 02/13 but stable on 02/15. Trial of Midodrine but patient was not agreeable to taking at home. Reports she does not like to take medications. PT/OT recommending rehab but patient was not agreeable secondary to a bad experience when her mother went to rehab years ago. Was agreeable to home health but cannot be set up until after she sees her PCP since she has not been seen since 2022, discussed w/ CM that the home health fac ility will follow up with her after her PCP appt. Was agreeable to using a walker at home to help w/ balance. encourage increased PO fluid intake & slow positional changes. #Hypokalemia K mildly low on 02/14 @ 3.4, s/p repletion. #Abdominal discomfort - resolved CTA/P shows mild dilation of the right renal collecting system without hydronephrosis or evidence of obstructing lesion. Diverticulosis without diverticulitis seen. Spinal stenosis at L4-L5 Afebrile, no leukocytosis throughout hospital stay. #Anxiety/depression has declined pharmacologic treatment for this CTA/P shows mild dilation of the right renal collecting system without hydronephrosis or evidence of obstructing lesion. Diverticulosis without diverticulitis seen. Spinal stenosis at L4-L5 Afebrile, no leukocytosis throughout hospital stay. Patient discharged home w/ plans to follow up w/ PCP for home PT/OT to be arranged 02/15. Admission HPI Per Admitting Provider Wendy Reece is an 84-year-old female with multiple episodes in the past of dizziness who presents for feeling poorly over the last few days, mild abdominal tenderness, and dizziness/room spinning when standing and with positional head movements. She underwent a CTA/P without acute finding. Lactate was minimally elevated to 2.1, no other acute metabolic derangements were noted in the ER. CThead was normal. Patient was attempted to be ambulated by the ER prior to admission consultation, noted concern for hypotensive response and severe dizziness with inability to ambulate safely. She was recommended for further workup, PT/OT, and care with medicine team. Nano is seen at the bedside. She reports that for many years she has had longstanding issues with some lightheadedness when standing and some progressive weakness over the last few months when trying to walk. She denies any focal extremity weakness or sensory change. Symptoms today were with lightheadedness and much worse when trying to get up and stand out of bed. She has no symptoms when standing at the past. She denies any room spinning quality either today or in the past/denies vertigo. She has not had chest pain or chest pressure at any point. Denies shortness of breath. Abdominal pain has improved, she did have some coming and today however this feels better. She denies fever chills and sweats. Does not completely lost consciousness at any point. She did have a fall a week or 2 ago where she felt very weak overall. She denies recent illness or flulike symptoms. 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 She denies dysuria and polyuria. She does report that she really does not drink very much water at all and knows she is probably dehydrated. Reports some leg swelling if she is on her feet for prolonged period however this improves with putting her feet up and does not have swelling in her legs if she elevates her feet. She denies shortness of breath and orthopnea Medical History: Reviewed Medications: Reviewed Surgical History: Reviewed Family history: Reviewed Allergies: Reviewed Social History: Reviewed Code Status: Full. Discussed at bedside. She reports she is not really sure which she would want done long-term, did discuss the nature of resuscitation, success rates, and what the range of success would look like versus DNR/DNI options. She reports she feels a little bit overwhelmed and would like to think about this more but remain full code on admission. Discharge Exam General: NAD, VS: BP 114/71; P77; R16; T36.8C Resp: normal respiratory effort Extremities: Moves all extremities, no edema Neuro: A&O x3 Skin: intact, no lesions noted Discharge Plan Discharge Items Patient Disposition: Home - Self-Care Reason For Visit: DIZZINESS, WEAKNESS Discharge Diagnosis: Weakness, Dizziness Activity: Resume your previous activity Non-emergency contact: Primary Care Provider Call non-emergency contact if: you have any medication questions and your symptoms worsen Follow-up/Referrals: Peggy Villarreal MD [Primary Care Provider] - 02/22/25 1:00 pm Diet: Regular Addtl Attending Provider Instructions: Ms. Reece, You were recently hospitalized secondary to an episode of dizziness/vertigo that you experienced in your home. Upon discharge, please ensure that you are taking time to sit between position changes. Please also ensure you are drinking an adequate amount of water on a daily basis. Doing these two tasks will help keep your blood pressure at an adequate level and avoid medication. You will also be receiving physical and occupational therapy at home to help you regain strength. A script for a walker has been filled out for you and you received the walker prior to discharge. Please use this at home as this will help maintain your balance. Medications: Your medication list has been reviewed and reconciled upon discharge to ensure accuracy and continuity of care. An updated list of all your medications is included with your hospital discharge paperwork. Please review this list closely, and make note of any changes. Take your medications as instructed; do not skip a dose of your medicines. Make sure all of your doctors know every medicine you are taking (including [id number] medicines, vitamins, and supplements). Call your primary care provider before taking any new medicines (including over- the-counter medicines, vitamins, and supplements), because some of these may interact with your current medications, or may make your symptoms worse. Tell your primary care provider if you cannot afford your medications. Activity: You can do normal everyday activities as your body allows. Take rest breaks if you feel tired. Do not overexert. Stop activity if you have pain, shortness of breath or feel dizzy. Follow-up appointments: Make an appointment with your primary care physician within one week of discharge. A copy of this summary will be sent to them. Every time you see your primary care physician, or any other doctor, bring your medication list, and a list of questions. CONTACT YOUR PRIMARY CARE PROVIDER if you experience any of the following: Shortness of breath or difficulty breathing Fevers or chills Feeling tired with normal activity or experiencing dizziness or fainting Difficulty following your treatment plan, or difficulty taking medications CALL 911 OR GO TO THE EMERGENCY DEPARTMENT if you experience any of the following: Severe abdominal pain or nausea/vomiting Severe chest pain, or chest pain that radiates (moves) to your jaw or arm Sudden, severe shortness of breath or difficulty breathing Thank you for allowing us to participate in your care. Pending Studies at Discharge: No Stand-Alone Forms: [facility], Smoking Cessation Medications and DC Order Prescriptions: Continued acetaminophen [Tylenol Extra Strength] 500 mg Tablet 500 mg PO QID PRN (Reason: Pain) ibuprofen 200 mg Tablet 200 mg PO DIRECTED PRN (Reason: Pain) Discharge Orders: Discharge Order (Routine); Ordered 02/15/25 Ordered By: Tessie Arora/Other Patient Handouts: Vertigo Staying Safe Admission Data Admit Date/Time: 02/14/25 14:17 Attending Provider: Quang Lamas Admit Provider: Quang Lamas Primary Care Provider: Peggy Villarreal Other Providers: Wilder Fitzgerald; Juliano,[facility] Other Interventions: Discharge Summary Assessment (RN) Last Done: 02/15/25 11:05 Hospital Stay Data Consultations 02/11/25 17:29 ED Decision to Admit Stat Diagnostic Imagining Performed 02/11/25 14:36 CT abd pelvis IV con only Stat CT head/brain wo con Stat Pending Results Patient Have Any Pending Studies at Discharge: No Discharge Instructions Given to Patient (Per Discharging Provider) Ms. Reece, Edwin were recently hospitalized secondary to an episode of dizziness/vertigo that you experienced in your home. Upon discharge, please ensure that you are taking time to sit between position changes. Please also ensure you are drinking an adequate amount of water on a daily basis. Doing these two tasks will help keep your blood pressure at an adequate level and avoid medication. You will also be receiving physical and occupational therapy at home to help you regain strength. A script for a walker has been filled out for you and you received the walker prior to discharge. Please use this at home as this will help maintain your balance. Medications: Your medication list has been reviewed and reconciled upon discharge to ensure accuracy and continuity of care. An updated list of all your medications is included with your hospital discharge paperwork. Please review this list closely, and make note of any changes. Take your medications as instructed; do not skip a dose of your medicines. Make sure all of your doctors know every medicine you are taking (including [id number]-matlzft medicines, vitamins, and supplements). Call your primary care provider before taking any new medicines (including over- the-counter medicines, vitamins, and supplements), because some of these may interact with your current medications, or may make your symptoms worse. Tell your primary care provider if you cannot afford your medications. Activity: You can do normal everyday activities as your body allows. Take rest breaks if you feel tired. Do not overexert. Stop activity if you have pain, shortness of breath or feel dizzy. Follow-up appointments: Make an appointment with your primary care physician within one week of discharge. A copy of this summary will be sent to them. Every time you see your primary care physician, or any other doctor, bring your medication list, and a list of questions. CONTACT YOUR PRIMARY CARE PROVIDER if you experience any of the following: Shortness of breath or difficulty breathing Fevers or chills Feeling tired with normal activity or experiencing dizziness or fainting Difficulty following your treatment plan, or difficulty taking medications CALL 911 OR GO TO THE EMERGENCY DEPARTMENT if you experience any of the following: Severe abdominal pain or nausea/vomiting Severe chest pain, or chest pain that radiates (moves) to your jaw or arm Sudden, severe shortness of breath or difficulty breathing Thank you for allowing us to participate in your care. Supervising Physician Co-Signing Physician Notes The patient was not seen by me. The chart was reviewed. Case discussed with LEONA Ren[place]. Agree with assessment and plan Total Time Total Time Spent Total Time Spent (In Minutes): 60 Total Time Includes: Examination of the Patient, Discharge Planning, Medication Reconciliation and Communication With Other Providers Coding Level of Care Code 14928 INP/OBS DISCH >30 MIN Diagnoses Dizziness R42 Epigastric abdominal pain R10.13 Hypokalemia E87.6
== END 2025-02-15 11:58 | disposition home or self-care (01) | DRG 312 ==
LOC: ED 14:26 → 3N 14:26 → SUATTDRO 18:55 → 3N 21:32